=== PATIENT | male | born 1990 | race Caucasian/White ===

== ENCOUNTER 2017-04-30 09:26 | Emergency (ER) | payer BC ==
[2017-04-30] MEDS: KETOROLAC 60 MG/2 ML INJ. IM ×2 (09:48)
[2017-04-30] MEDS: guaiFENesin DM 600/30MG 1 TAB TAB.ER.12H PO ×2 (09:48)
[2017-04-30 10:10] LABS: INFLUENZA A PATIENT NEGATIVE (NEGATIVE); INFLUENZA B PATIENT NEGATIVE (NEGATIVE); OBC FLU VALID
== END 2017-04-30 10:25 | disposition home or self-care (01) ==
LOC: ER 09:26
DX: J39.9 Disease of upper respiratory tract, unspecified (principal); K21.9 Gastro-esophageal reflux disease without esophagitis; I10 Essential (primary) hypertension
CPT/HCPCS: 71046; 87804; 87804-59; 96372; 99285; J1885